=== PATIENT | male | born 1980 | race Caucasian/White ===

== ENCOUNTER 2018-05-02 14:39 | Emergency (ER) | payer OTHER ==
[~2018-05-02] VITALS: Ht 177.8 cm; Wt 110.2 kg
[~2018-05-02 14:39] MED LIST: AMOXICILLIN 50500 M1 PO; AMOXICILLIN875 MG PO; AMOXIL 875 MG875 M1 PO; AUGMENTIN 875875 M1 PO; AZITHROMYCIN 2250 MG PO; CARBAMAZEPINE200 M2 PO; CELEXA 20 MG TA20 M1 PO; COLACE 100 MG100 MG PO; COLACE100 MG PO; DESYREL150 MG; ENDOCET 5-3251 EACH PO; FLEXERIL PO; GUAIFENESIN L1200 MG PO; LEVAQUIN 750 M750 MG PO; LITHIUM; LORTABELXR PO; MEDROLDOSEPACK PO; MUCINEX TA600 MG/TA1 PO; MULTIVITAMINS; NICOTINE TRANSD14 M1 TD; NORCO 5-325 TA1 EACH PO; OXYCODONE-APAP1 EAC4 PO; OXYIR 5 MG CAPSU5 M1 PO; PENICILLIN VK500 M1 PO; ROXICODONE5 M1 PO; VENTOLIN HFA 1818 GM INH; ZPAK PO
[2018-05-02] MEDS ORDERED: PRILOSEC OTC20 MG PO (14:44)
[2018-05-02] MEDS ORDERED: TRAMADOL 50 MG50 MG PO (15:43)
[2018-05-02 15:59] VITALS: BP 128/77
== END 2018-05-02 15:59 | disposition home or self-care (01) ==
LOC: M.ERS 14:39
DX: S46.001A Unspecified injury of muscle(s) and tendon(s) of the rotator cuff of right shoulder, initial encounter (principal); W19.XXXA Unspecified fall, initial encounter; Y93.61 Activity, american tackle football; Y92.89 Other specified places as the place of occurrence of the external cause; Y99.8 Other external cause status; F32.9 Major depressive disorder, single episode, unspecified; Z88.5 Allergy status to narcotic agent; Z88.6 Allergy status to analgesic agent

== ENCOUNTER 2018-12-16 01:00 | Inpatient (IN) | payer OTHER ==
[~2018-12-16] VITALS: Ht 188 cm; Wt 108.9 kg
--- NOTE | ~2018-12-16 | OP ---
[facility] [address] [place] [address] OPERATIVE REPORT Name: SHLOMO KAPOOR Room: [address] IN M.R.#: [id number] Admission: 12/16/18 Attend Phys: Isatu De Dios Discharge: Date of : 84 Report #: [id number] THIS REPORT FOR: //name// CC: Viola Andrews DO [facility] physician/PCP Yo Ruiz On behalf of Dr. Viola Andrews. PREOPERATIVE DIAGNOSES: Acute cholecystitis with cholelithiasis. POSTOPERATIVE DIAGNOSES: Acute cholecystitis with cholelithiasis. PROCEDURE PERFORMED: Laparoscopic cholecystectomy. SURGEON: Viola Andrews DO. CO-SURGEON: Philip Lal DO, PGY2. HEAT REGULATOR: None. ANESTHESIA: General and local. FINDINGS: Acute cholecystitis, cholelithiasis. ESTIMATED BLOOD LOSS: 20. SPECIMEN REMOVED: Gallbladder. COMPLICATIONS: None. HISTORY OF PRESENT ILLNESS: The patient is a 38-year-old male who presented with right upper quadrant midepigastric abdominal pain. CT scan did show gallstones with pericholecystic fluid and gallbladder dilation consistent with cholecystitis. It was discussed that he should undergo laparoscopic cholecystectomy. Risks and complications were discussed to include bleeding, infection, injury to surrounding structures, possible anesthesia risks. He acknowledged his understanding of risks and complications and benefits and agreed to proceed with surgery. DESCRIPTION OF PROCEDURE: After consent was obtained, the patient was taken to the operating room and placed in the supine position. SCDs applied to bilateral lower extremities. Safety belt was placed across the patient's waist. Zosyn was given prior to surgery, and this was continued for surgical prophylaxis. The patient then underwent general anesthesia and intubation without any complications. The patient was prepped and draped in standard sterile fashion. Timeout was performed to confirm the patient and procedure[place] [address] OPERATIVE REPORT Name: SHLOMO KAPOOR Room: [address] IN [facility]#: [id number] Admission: 12/16/18 Attend Phys: Isatu De Dios Discharge: Date of : 84 Report #: [id number] incision was made using an 11 blade scalpel in a transverse fashion. Electrocautery was used for hemostasis. Hemostat was used to bluntly dissect, and S retractors were used to bluntly dissect down to the level of the fascia. Fascia was encountered, grasped between 2 Kochers and elevated. Fascia was scored with electrocautery. Hemostat was used to bluntly enter the peritoneum. Two stitches of 0 Vicryl were placed on either side of the fascia. A finger sweep was performed to ensure no intraabdominal adhesions and 10 mm Chu trocar was inserted into the abdomen. Insufflation was initiated without complication. Camera was inserted into the abdomen. Intra-abdominal inspection and contents were inspected. The liver could be seen. The gallbladder could be seen underneath the edge of the liver. There was evidence of acute cholecystitis with multiple adhesions. Multiple edematous process around the gallbladder. A second 11 mm trocar was placed subxiphoid under direct visualization. The gallbladder was grasped and elevated. Two more 5 mm trocars were placed in the right upper quadrant under direct visualization. Once the gallbladder was elevated, attention was turned towards isolating the cystic artery and cystic duct. The patient was placed in reverse Trendelenburg and turned towards the left. Hook electrocautery was used to dissect the fat planes around the gallbladder. Dissection was carried medially and laterally. Once the visceral peritoneum was dissected, [place] dissector was used to dissect the fat off the cystic duct. The cystic duct could be seen going easily up into the gallbladder. Once the cystic duct was easily isolated, attention was turned to isolating the cystic artery. Combination of hook electrocautery and [place] dissection was used to easily dissect out the cystic artery. This structure could easily be seen going up into the gallbladder itself. The critical view of safety was obtained. Cystic duct was clipped twice distally and once proximally. Cystic artery was placed. It was clipped twice distally and once proximally. Both structures were cut. Clips were inspected. There was no evidence of bile leak or bleeding. Electrocautery was used to dissect the gallbladder off the liver fossa. Once the gallbladder was completely dissected off, it was placed in laparoscopic EndoCatch bag. Liver bed was inspected. Hemostasis was assured with electrocautery. A piece of Surgicel was placed in the gallbladder fossa. Gallbladder fossa was irrigated copiously and all fluid was suctioned out of the abdomen. All trocars were removed under direct visualization. There was no evidence of bleeding. Once hemostasis was completely assured, the insufflation was let down. The gallbladder and its contents were removed from the infraumbilical incision site. It was grossly distended with evidence of acute cholecystitis and cholelithiasis. Infraumbilical fascia was closed with running stitch of 0 Vicryl in a [id number] fashion. Subcutaneous tissue was closed with 3-0 Vicryl. All skin incisions were closed with 4-0 Monocryl. Sterile dressing was applied over top. All counts were correct at the end of the case. [place] [address] OPERATIVE REPORT Name: DANA KAPOORANITA BENÍTEZITH Room: [address] IN M.R.#: [id number] Admission: 12/16/18 Attend Phys: Isatu De Dios Discharge: Date of : 84 Report #: [id number] from general anesthesia and transferred to PACU in stable condition with plan to discharge home. By: [id number] may Pepper
[~2018-12-16 01:00] MED LIST changes: +PRILOSEC OTC20 MG PO; +TRAMADOL 50 MG50 MG PO
[2018-12-16 01:20] VITALS: BP 113/71
[2018-12-16 01:41] LABS: ABSOLUTE BASOPHILS 0.1 thou/uL (0.0-0.2); ABSOLUTE EOSINOPHILS 0.3 thou/uL (0.0-0.7); ABSOLUTE LYMPHOCYTES 4.2 thou/uL (0.8-5.3); ABSOLUTE MONOCYTES 1.6 thou/uL (0.0-1.2); ABSOLUTE NEUTROPHILS 11.3 thou/uL (1.6-8.1); BASOPHILS 0.5 %; EOSINOPHILS 1.7 %; HEMATOCRIT 43.9 % (42.0-52.0); HEMOGLOBIN 14.8 gm/dL (14.0-18.0); LYMPHOCYTES 24.2 %; MCH 30.8 pg (26.0-34.0); MCHC 33.7 g/dL (28.0-37.0); MCV 91.3 fL (80.0-100.0); MONOCYTES 9.2 %; MPV 7.2 fl. (7.2-11.1); NUCLEATED RBCS 0 /100WBC; PLATELET COUNT* 332 thou/uL (150-400); POLYS 64.4 %; RDW-CV 13.4 % (10.5-14.5); WBC 17.5 thou/uL (4.0-11.0)
[2018-12-16 01:48] LABS: ANION GAP 10 mmol/L (7-16); BUN 12 mg/dL (7-18); CALCIUM 9.2 mg/dL (8.5-10.1); CHLORIDE 106 mmol/L (98-107); CO2 27 mmol/L (21-32); CREATININE 1.2 mg/dL (0.6-1.3); GLUCOSE 126 mg/dL (70-99); POTASSIUM 4.1 mmol/L (3.5-5.1); SODIUM 143 mmol/L (136-145)
[2018-12-16 01:50] LABS: PROTIME 10.2 Seconds (9.20-11.50)
[2018-12-16 01:57] LABS: ALBUMIN 3.6 g/dL (3.4-5.0); ALKALINE PHOSPHATASE 59 U/L (46-116); LIPASE 181 U/L (73-393); SGOT 20 U/L (15-37); SGPT 53 U/L (30-65); TOTAL BILIRUBIN 0.2 mg/dL (<0.1-1.0); TOTAL PROTEIN 7.4 g/dL (6.4-8.2); TROPONIN-I LEVEL <0.06 ng/mL (<0.06)
[2018-12-16 03:38] LABS: URINE BILIRUBIN NEGATIVE (Negative); URINE BLOOD NEGATIVE (Negative); URINE CLARITY CLEAR; URINE COLOR YELLOW; URINE GLUCOSE-RANDOM NEGATIVE (Negative); URINE KETONES TRACE (Negative); URINE LEUKOCYTES-REFLEX NEGATIVE (Negative); URINE NITRITE-REFLEX NEGATIVE (Negative); URINE PROTEIN NEGATIVE (Negative); URINE SPECIFIC GRAVITY >= 1.030 (1.005-1.030); URINE UROBILINOGEN 0.2 E.U./dl (0.2-1.0)
[2018-12-16 03:52] LABS: AMP/METHAMP Negative (Negative); BARBITURATES Negative (Negative); BENZODIAZEPINES Negative (Negative); COCAINE Negative (Negative); METHADONE Negative (Negative); OPIATES Negative (Negative); PCP Negative (Negative); THC Negative (Negative)
[2018-12-16 13:46] VITALS: BP 113/67
[2018-12-16 14:00] VITALS: BP 113/67
--- NOTE | 2018-12-16 14:05 | NUR ---
PATIENT ARRIVED TO UNIT FROM ER AT 1400. ALERT AND ORIENTED X 4. VITAL SIGNS STABLE ON ROOM AIR. ORIENTED PATIENT TO ROOM. CALL LIGHT WITHIN REACH. NURSING WILL CONTINUE TO MONITOR.
--- NOTE | 2018-12-16 17:45 | NUR ---
PATIENT ALERT AND ORIENTED X 4. VITAL SIGNS STABLE ON ROOM AIR. AFEBRILE. UP INDEPENDENTLY IN ROOM. IV PATENT WITH FLUIDS INFUSING PER MAR. DENIES NAUSEA. PAIN BEING MANAGED WITH IV MEDICATION. TOLERATING CLEAR LIQUID DIET. PATIENT TO BE NPO AFTER MIDNIGHT TONIGHT. HOURLY ROUNDS MAINTAINED THROUGHOUT THE SHIFT. CALL LIGHT WITHIN REACH. NURSING WILL CONTINUE TO MONITOR.
[2018-12-16 20:00] VITALS: BP 117/79
[2018-12-17] VITALS (7 sets, daily range): BP systolic 123–136; BP diastolic 70–80
[2018-12-17 04:26] LABS: HEMATOCRIT 40.6 % (42.0-52.0); HEMOGLOBIN 13.1 gm/dL (14.0-18.0); MCH 30.4 pg (26.0-34.0); MCHC 32.4 g/dL (28.0-37.0); MCV 94.1 fL (80.0-100.0); MPV 7.7 fl. (7.2-11.1); RBC 4.32 mil/uL (4.50-6.00); RDW-CV 13.7 % (10.5-14.5); WBC 14.5 thou/uL (4.0-11.0)
[2018-12-17 04:49] LABS: CALCIUM 8.7 mg/dL (8.5-10.1); CREATININE 0.9 mg/dL (0.6-1.3); MAGNESIUM 1.9 mg/dL (1.8-2.4); PHOSPHORUS* 3.5 mg/dL (2.5-4.9); POTASSIUM 4.6 mmol/L (3.5-5.1); TOTAL BILIRUBIN 0.5 mg/dL (<0.1-1.0)
--- NOTE | 2018-12-17 05:53 | NUR ---
PATIENT SLEPT MOST OF THE NIGHT. IV FLUIDS AND ANTIBIOTICS WERE GIVEN ORDERED. PATIENT HAS BEEN NPO SINCE MIDNIGHT FOR SURGERY TODAY. PATIENT WAS GIVEN PAIN MEDICINE THREE TIMES THIS SHIFT. WILL CONTINUE TO MONITOR.
--- NOTE | 2018-12-17 12:44 | NUR ---
PATIENT ARRIVED BACK FROM SURGERY AT 1220. ALERT AND ORIENTED X 4. VITAL SIGNS STABLE ON 4L O2 NASAL CANULA. CALL LIGHT WITHIN REACH. NURSING WILL CONTINUE TO MONITOR. PASSED OFF CARES AND GAVE REPORT TO LUCILA ARMENDARIZ.
[2018-12-17 13:46] LABS: BE -2.7 mmol/L (-2 to +3); PCO2 37.1 mmHg (35.0-45.0); PO2 79.6 mmHg (75.0-100.0); pH 7.387 (7.340-7.450)
--- NOTE | 2018-12-17 17:19 | NUR ---
PT REMAINED ALERT AND ORIENTED. PT ON [address] L[address]. CAPNO IN [address]ACE. IS TEACHING COMPLETED. PAIN MEDS GIVEN ORDERED. LASIX GIVEN. EKG ORDERED. CHEST X-RAY ORDERED. ABG ORDERED. FALL RISK PRECAUTIONS IN PLACE. HOURLY ROUNDING COMPLETED. WILL CONTINUE TO MONITOR.
[2018-12-18 03:00] VITALS: BP 116/70
--- NOTE | 2018-12-18 06:03 | NUR ---
PATIENT SLEPT PART OF THE NIGHT. PATIENT WAS GIVEN PAIN MEDICINE TWICE THIS SHIFT. IV ANTIBIOTIC WAS GIVEN ORDERED. PATIENT REMAINS ON 5L OXYGEN WITH CAPNO. PATIENT DID AMBULATE THE HALLS ONCE WITH NURSE SATS ON ROOM AIR WERE 89-91% WHILE AMBULATING. LAP SITES REMAIN CLEAN DRY AND INTACT. PATIENT SHOULD DISCHARGE HOME LATER TODAY. WILL CONTINUE TO MONITOR.
[2018-12-18 07:30] VITALS: BP 123/63
[2018-12-18] MEDS ORDERED: OXYCODONE HCL 55 MG PO (11:08)
--- NOTE | 2018-12-18 11:29 | NUR ---
PATIENT DISCHARGED TO HOME AT THIS TIME. OK TO DISCHARGE HOME PER SURGERY. DR. MIGUEL NOTIFIED AND PATIENT TO DISCHARGE HOME. 02 ON RA 93%. PATIENT UP AND AMBULATING WITHOUT DIFFICULTY. VOIDING WITHOUT DIFFICULTY. VERBALIZES UNDERSTANDING OF PAPERWORK AND SCRIPT. PATIEN TAKEN OUT VIA WHEELCHAIR WITH ALL BELONGINGS.
--- NOTE | 2018-12-18 16:49 | EKG ---
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: : 1980 Requested By: Kiana Sue Order Number: [id number] MD: Gagandeep Villarreal Measurements Intervals [place] Rate: 80 P: 72 NH: 146 QRS: 46 QRSD: 89 T: 43 QT: 367 QTc: 424 Interpretive Statements Sinus rhythm ST elev, probable normal early repol pattern Compared to ECG 04/22/2010 09:27:24 ST (T wave) deviation now present Electronically Signed On 12-18-2018 16:49:41 CDT by Gagandeep Villarreal [email or web address] <ELECTRONICALLY SIGNED> By: Gagandeep Villarreal MD, [facility] 12/18/18 1649 0125 0125 Gagandeep Villarreal MD, [facility] /EPI
--- NOTE | 2018-12-18 17:00 | EKG ---
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 : 1980 Requested By: Yo Ruiz Order Number: [id number] Nasar MD: Gagandeep Villarreal Measurements Intervals [place] Rate: 117 P: 73 MN: 163 QRS: 51 QRSD: 88 T: 30 QT: 319 QTc: 445 Interpretive Statements Sinus tachycardia Probable left atrial enlargement RSR' in V1 or V2, right VCD Compared to ECG 04/22/2010 09:27:24 RSR' in V1 or V2 now present Sinus rate has increased Electronically Signed On 12-18-2018 17:00:09 CDT by Gagandeep Villarreal [email or web address] <ELECTRONICALLY SIGNED> By: Gagandeep Villarreal MD, [facility] 12/18/18 1700 1618 1618 Gagandeep Villarreal MD, [facility] /EPI
--- NOTE | 2018-12-19 13:07 | PATH ---
[facility] [address] [place] [address] PATHOLOGY RPT PROCEDURE Name: SHLOMO KAPOOR Room: [address] IN M.R.#: [id number] Admission: 12/16/18 Date of : 84 Discharge: 12/18/18 Report #: [id number] Path Case #: [id number] [facility] Accession Number: [id number] . 01 Material submitted: . gallbladder - GALLBLADDER . 01 Clinical history: . Acute cholecystitis with cholelithiasis . 02 Diagnosis: Gallbladder: - Chronic and acute cholecystitis, cholelithiasis and hyperplastic sentinel lymph node. (BARBY/db; 12/19/2018) LBQ/12/19/2018 . 02 Electronically signed: . Vicente Freedman MD, Pathologist NPI- [id number] . 01 Gross description: . The specimen is received in formalin labeled "Shlomo Kapoor, gallbladder" and consists of an intact, green-henderson, smooth, and shiny gallbladder measuring 10.4 cm in length and up to 4.5 cm in diameter. The margin is inked black. Opening reveals a lumen filled with tenacious green bile and a single green, oval, and smooth calculus measuring 1.9 x 1.8 cm. The mucosa is green, velvety, and focally trabeculated with an average wall thickness of 0.1 cm. Adjacent the gallbladder neck is a lymph node candidate measuring 0.9 x 0.7 cm. No masses are identified. Canal Equipment Maintenance Supervisor sections are submitted in A1-A2 with the candidate in A2. (SDY; 12/18/2018) SYU/SYU . 02 Pathologist provided ICD-10: K80.12 . 02 CPT . 831951 Specimen Comment: A courtesy copy of this report has been sent to Specimen Comment: [phone], . Specimen Comment: Report sent to / DR MIGUEL Performed at: [address] [id number] MD Meet Mcwilliams MD Phone: [phone] Performed at: 02 [place] [address] PATHOLOGY RPT PROCEDURE Name: SHLOMO KAPOOR JACQUES Room: [address] IN M.R.#: [id number] Admission: 12/16/18 Date of : 84 Discharge: 12/18/18 Report #: [id number] Path Case #: [id number] [address] LUCIA Elizabeth [id number] MD Vicente Freedman MD Phone: [phone]
== END 2018-12-18 11:40 | disposition home or self-care (01) | DRG 419 ==
LOC: M.ERS 01:00 → M.TBA-ER 04:45 → M.ORTHSURG 04:45
PROVIDERS: Personal Emergency Response Attendant; ADMIT Internal Medicine
PROC: 0FT44ZZ Resection of Gallbladder, Percutaneous Endoscopic Approach (ICD-10-PCS; principal; 2018-12-17)
DX: K80.00 Calculus of gallbladder with acute cholecystitis without obstruction (principal); F32.9 Major depressive disorder, single episode, unspecified; F17.210 Nicotine dependence, cigarettes, uncomplicated; D72.829 Elevated white blood cell count, unspecified; Z88.6 Allergy status to analgesic agent